=== PATIENT | female | born 1955 ===

== ENCOUNTER 2017-09-05 08:14 | Emergency (ER) | payer MEDICAID ==
[2017-09-05 08:14] VITALS: BMI 40.3
[2017-09-05 08:19] VITALS: RESP 18
[2017-09-05] MEDS ORDERED: Iohexol 240 (50 ml) PO STA (08:33)
[2017-09-05] MEDS ORDERED: Sodium Chloride 0.9% 1,000 ML IV ONE (08:33)
--- NOTE | 2017-09-05 08:33 | C.PDOC ---
History Of Present Illness 62-year-old female, PMHx includes Diverticulitis, presents to the emergency department with complaints of right sided abdominal pain, that is associated with nausea, non-bloody/non-bilious vomiting and watery/non-bloody diarrhea for the past week. Patient is also complaining of body aches. Denies any fevers, chest pain, shortness of breath, back pain, or any other associated symptoms. No other complaints at this time. Time Seen by Provider: 09/05/17 08:18 History Per: Patient History/Exam Limitations: no limitations Onset/Duration Of Symptoms: Days Current Symptoms Are (Timing): Still Present Past Medical History Reviewed: Historical Data, Nursing Documentation, Vital Signs Vital Signs: Last Vital Signs Temp 100.2 F H 09/05/17 13:20 Pulse 79 09/05/17 13:20 Resp 18 09/05/17 13:20 BP 140/91 H 09/05/17 13:20 Pulse Ox 98 09/05/17 13:37 - Medical History PMH: Asthma, COPD, Depression, Diabetes, HTN, Hypercholesterolemia, Sleep Apnea , TIA (2000 no residual) Denies: Chronic Kidney Disease Surgical History: Cholecystectomy (2000) Family History: States: No Known Family Hx - Social History Hx Tobacco Use: No Hx Alcohol Use: No Hx Substance Use: No - Immunization History Hx Tetanus Toxoid Vaccination: No Hx Influenza Vaccination: No Hx Pneumococcal Vaccination: No Review Of Systems Except As Marked, All Systems Reviewed And Found Negative. Constitutional: Negative for: Fever Cardiovascular: Negative for: Chest Pain Respiratory: Negative for: Shortness of Breath Gastrointestinal: Positive for: Abdominal Pain. Negative for: Nausea, Vomiting , Diarrhea Genitourinary: Negative for: Dysuria, Frequency, Vaginal Discharge Neurological: Negative for: Weakness Physical Exam - Physical Exam Appears: Non-toxic, No Acute Distress Skin: Normal Color, Warm, Dry, No Diaphoretic, No Rash Head: Normacephalic Eye(s): bilateral: PERRL Oral Mucosa: Moist Lips: Normal Appearing Neck: Normal ROM Chest: Symmetrical Cardiovascular: Rhythm Regular, No Murmur Respiratory: Normal Breath Sounds, No Accessory Muscle Use Gastrointestinal/Abdominal: Soft, Tenderness (Mild, LLQ tenderness), No Guarding , No Rebound Extremity: Normal ROM, No Pedal Edema, No Deformity Neurological/Psych: Oriented x3 ED Course And Treatment - Laboratory Results Result Diagrams: 09/05/17 09:03 09/05/17 09:03 ECG: Interpreted By Me ECG Rhythm: Sinus Rhythm ECG Interpretation: Normal Rate From EC O2 Sat by Pulse Oximetry: 98 (RA) Pulse Ox Interpretation: Normal - CT Scan/US CT Abd/Pel Other Rad Studies (CT/US): Read By Radiologist, Radiology Report Reviewed CT/US Interpretation: Accession No. : [id number]. Patient Name / ID : LOBO CASTILLO A / [id number]. Exam Date : 09/05/2017 11:04:53 ( Approved ). Study Comment : Sex / Age : F / 62Y. Creator : Camilla Mendoza. Dictator : Jovanny Swenson MD. Temple Marker : Fund Controller : Jovanny Swenson MD. Approver2 : Report Date : 09/05/2017 11:33:28. My Comment : . PROCEDURE: CT Abdomen and Pelvis with contrast. HISTORY: abd pain ho diverticulosis s/p billie, hyst. COMPARISON: 08/20/2014. TECHNIQUE: Contrast dose: 100 mL Visipaque 320. Radiation dose: Total exam DLP = 1265.20 MGy-cm. This CT exam was performed using one or more of the following dose reduction techniques: Automated exposure control, adjustment of the mA and/or kV according to patient size, and/or use of iterative reconstruction technique. FINDINGS: LOWER THORAX: Unremarkable. LIVER: Unremarkable. No gross lesion or ductal dilatation. GALLBLADDER AND BILE DUCTS: Status post cholecystectomy. PANCREAS: Unremarkable. No gross lesion or ductal dilatation. SPLEEN: Unremarkable. ADRENALS: Unremarkable. No mass. KIDNEYS AND URETERS: Unremarkable. No hydronephrosis. No solid mass. No renal calculus. VASCULATURE: Unremarkable. No aortic aneurysm. BOWEL: Sigmoid diverticulosis. No evidence of diverticulitis. No evidence of bowel obstruction. No other abnormal bowel loops are identified. APPENDIX: Not identified. No secondary findings. PERITONEUM: Unremarkable. No free fluid. No free air. LYMPH NODES: Unremarkable. No enlarged lymph nodes. BLADDER: Unremarkable. REPRODUCTIVE: Status post hysterectomy. BONES: No acute fracture. OTHER FINDINGS: None. IMPRESSION: Sigmoid diverticulosis without evidence of diverticulitis. Status post cholecystectomy and hysterectomy. Otherwise unremarkable examination. Progress - Re-Evaluation Re-evaluation Note: 09/05/17 13:33 NO S/S ACUTE ABD. CT REPORT REVIEWED. LABS WNL - Data Reviewed Data Reviewed: Lab, Diagnostic imaging, EKG, Old records Medical Decision Making Medical Decision Making: UNABLE TO DOSE NARCOTIC PAIN RX DUE TO STATED ALLERGY. CONCERN FOR SURG ABD, UNABLE TO GIVE TORADOL Disposition Counseled Patient/Family Regarding: Studies Performed, Diagnosis, Need For Followup, Rx Given - Disposition Referrals: YOUR,PMD [Other] Disposition: HOME/ ROUTINE Disposition Time: 13:34 Condition: IMPROVED Additional Instructions: KENTON PRUEBAS DE JARAD Y DE ORINA, Y LA EXPLORACIN DE CT SON NORMALES. TOME MEDICAMENTOS GEORGETTE SE PRESCRIBE. HEENA MANRIQUE PMD PARA EVALUACIN ADICIONAL. Prescriptions: Dicyclomine [Bentyl] 20 mg PO TID PRN #12 tab PRN Reason: Pain Ondansetron [Zofran Odt] 4 mg PO TID PRN #9 odt PRN Reason: Nausea/Vomiting Instructions: Gastritis Print Language: DANISH - Clinical Impression Clinical Impression: Nausea, Abdominal pain - Scribe Statement The provider has reviewed the documentation as recorded by the Scribe (Isabel Moody) All medical record entries made by the Scribe were at my direction and personally dictated by me. I have reviewed the chart and agree that the record accurately reflects my personal performance of the history, physical exam, medical decision making, and the department course for this patient. I have also personally directed, reviewed, and agree with the discharge instructions and disposition.
[2017-09-05] MEDS ORDERED: Sodium Chloride 0.9% 1,000 ML ONE (08:51)
[2017-09-05] MEDS ORDERED: Iohexol 240 (50 ml) ONE (09:07)
[2017-09-05 09:08] LABS: BASO % 0.8 % (0.0-2.0); EOS % 0.4 % (0.0-4.0); HEMOGLOBIN 13.6 g/dL (11.0-16.0); LYMPH # 1.5 K/uL (1.0-4.3); LYMPH % 28.4 % (20.0-40.0); MEAN CORPUSCULAR HEMOGLOBIN 28.5 pg (27.0-31.0); MEAN CORPUSCULAR HGB CONC 33.4 g/dL (33.0-37.0); MONO % 19.6 % (0.0-10.0); NEUT # 2.7 K/uL (1.8-7.0); NEUT % 50.8 % (50.0-75.0); NRBC % 0.1 % (0.0-2.0); RBC 4.76 Mil/uL (3.80-5.20); WHITE BLOOD COUNT 5.3 K/uL (4.8-10.8)
[2017-09-05 09:10] LABS: MEAN CELL VOLUME 85.5 fL (81.0-99.0)
[2017-09-05 09:23] LABS: ALB/GLOB RATIO 1.2 (1.0-2.1); ALBUMIN 3.9 g/dL (3.5-5.0); ALT/SGPT 24 U/L (9-52); BLOOD UREA NITROGEN 13 mg/dL (7-17); CALCIUM 8.1 mg/dl (8.6-10.4); GFR AFRICAN-AMERICAN > 60; GFR NON-AFRICAN AMERICAN > 60; LIPASE 129 U/L (23-300)
[2017-09-05 09:32] LABS: AST/SGOT 34 U/L (14-36)
[2017-09-05] MEDS ORDERED: Iodixanol 320 MG/ML 100 ML BOTTLE IV ONE (10:35)
--- NOTE | 2017-09-05 11:54 | CT ---
PROCEDURE: CT Abdomen and Pelvis with contrast HISTORY: abd pain ho diverticulosis s/p billie, hyst COMPARISON: 08/20/2014 TECHNIQUE: Contrast dose: 100 mL Visipaque 320 Radiation dose: Total exam DLP = 1265.20 MGy-cm. This CT exam was performed using one or more of the following dose reduction techniques: Automated exposure control, adjustment of the mA and/or kV according to patient size, and/or use of iterative reconstruction technique. FINDINGS: LOWER THORAX: Unremarkable. LIVER: Unremarkable. No gross lesion or ductal dilatation. GALLBLADDER AND BILE DUCTS: Status post cholecystectomy. PANCREAS: Unremarkable. No gross lesion or ductal dilatation. SPLEEN: Unremarkable. ADRENALS: Unremarkable. No mass. KIDNEYS AND URETERS: Unremarkable. No hydronephrosis. No solid mass. No renal calculus. VASCULATURE: Unremarkable. No aortic aneurysm. BOWEL: Sigmoid diverticulosis. No evidence of diverticulitis. No evidence of bowel obstruction. No other abnormal bowel loops are identified. APPENDIX: Not identified. No secondary findings. PERITONEUM: Unremarkable. No free fluid. No free air. LYMPH NODES: Unremarkable. No enlarged lymph nodes. BLADDER: Unremarkable. REPRODUCTIVE: Status post hysterectomy BONES: No acute fracture. OTHER FINDINGS: None. IMPRESSION: Sigmoid diverticulosis without evidence of diverticulitis. Status post cholecystectomy and hysterectomy. Otherwise unremarkable examination.
[2017-09-05 12:06] LABS: SQUAMOUS EPITHIAL 1 /hpf (0-5); URINE BACTERIA RARE (<OCC); URINE BILIRUBIN NEGATIVE (NEGATIVE); URINE BLOOD NEGATIVE (NEGATIVE); URINE CLARITY Hazy (Clear); URINE GLUCOSE (UA) NORMAL (Normal); URINE LEUKOCYTE ESTERASE NEG Leu/uL (Negative); URINE PROTEIN NEGATIVE (NEGATIVE); URINE UROBILINOGEN NORMAL mg/dL (0.2-1.0)
[2017-09-05 12:10] LABS: URINE COLOR STRAW (YELLOW)
[2017-09-05] MEDS ORDERED: Alum-Mag Hydrox-Simethicone Susp (30 mL) PO STA (12:35)
[2017-09-05] MEDS ORDERED: Alum-Mag Hydrox-Simethicone Susp (30 mL) ONE (13:12)
[2017-09-05 13:21] VITALS: BP 140/91; PULSE 79; TEMP 100.2
[2017-09-05 13:36] VITALS: O2SAT 98
--- NOTE | 2017-09-07 12:37 | CARD ---
APPROVED REPORT EKG Measurement Heart [id number] <Conclusion> Normal sinus rhythm Possible Left atrial enlargement Left ventricular hypertrophy Abnormal ECG
== END 2017-09-05 13:48 | disposition home or self-care (01) ==
LOC: C.ER 08:14
DX: R11.2 Nausea with vomiting, unspecified (principal); R10.9 Unspecified abdominal pain; I10 Essential (primary) hypertension; E78.00 Pure hypercholesterolemia, unspecified; E11.9 Type 2 diabetes mellitus without complications
CPT/HCPCS: 74177; 80053; 81001; 82948; 83690; 85025; 96361; 96372; 96374; 99285; J0500; J2405; J7040; Q9966; Q9967